=== PATIENT | male | born 1980 | race Native Hawaiian/Other Pacific Islander ===

== ENCOUNTER 2017-09-28 06:19 | Emergency (ER) | payer OTHER ==
[~2017-09-28] VITALS: Ht 177.8 cm; Wt 77.1 kg
[~2017-09-28 06:19] MED LIST: BACTRIM1 TAB PO
[2017-09-28 06:28] VITALS: TEMP 97.9
[2017-09-28 07:37] VITALS: BP 122/74
== END 2017-09-28 07:37 | disposition home or self-care (01) ==
LOC: ED 06:19
DX: M54.12 Radiculopathy, cervical region (principal)
CPT/HCPCS: 96372; 99283; J1885; J2360

== ENCOUNTER 2021-11-02 09:30 | Emergency (ER) | payer OTHER ==
[~2021-11-02] VITALS: Ht 180.3 cm; Wt 74.8 kg
[2021-11-02 09:59] VITALS: BP 125/71; TEMP 98.3
== END 2021-11-02 11:06 | disposition still patient (30) ==
LOC: ED 09:30
DX: H10.89 Other conjunctivitis (principal); Z53.29 Procedure and treatment not carried out because of patient's decision for other reasons
CPT/HCPCS: 99281